=== PATIENT | female | born 1975 | race Two or more races ===

== ENCOUNTER → 2016-07-17 | Day surgery (SDC) | payer BC ==
[~2016-07-17] MED LIST: DESFLURANE 16 TO 30 MINUTES. IH ONE; DEXAMETHASONE SOD PHOS 20 MG/5 ML VIAL. ONE; DOXY100T PO; HYDR-971 PO; HYDROcodone/APAP 5/325MG 1 TAB TABLET PO ONE; HYDROmorphone 2 MG/ML VIAL IV PRN; IV RINGERS,LACTATED 1000ML 1,000 ML IV SCH; LIDOCAINE 1% 1 ML SYRINGE. ID PRN; LIDOCAINE 2% PF Vial for OR 5 ML VIAL. ONE; METH0.2T36 PO; MIDAZOLAM HCL/PF 2 MG/2 ML VIAL. ONE; MORPHINE SULFATE 2 MG/ML DISP.SYRIN. IV PRN; NAPR500T3 PO; ONDANSETRON PF 4 MG/2 ML VIAL. IV PRN; ONDANSETRON PF 4 MG/2 ML VIAL. ONE; OXYTOCIN 10 UNIT/ML VIAL. ONE; PHENYLEPHRINE in 0.9% NACL PF 1 MG/10 ML DISP.SYRIN. IV ONE; PROCHLORPERAZINE 10 MG/2 ML VIAL. IV PRN; PROPOFOL 20 ML IV ONE; fentaNYL PF VIAL 100 MCG/2 ML VIAL IV PRN; fentaNYL PF VIAL 100 MCG/2 ML VIAL ONE
--- NOTE | 2016-07-17 14:05 | RAD ---
Obstetrical ultrasound, 07/17/2016: History: demise Transabdominal and transvaginal scans were obtained. There is a single intrauterine gestational sac. It contains a pole demonstrating a crown-rump length of 8 mm. There is suggests a gestational age of 6-7 weeks. No cardiac activity is evident. That is abnormal with a pole of this size indicating a nonviable . There is a moderate sized subchorionic hemorrhage within the uterine cavity measuring approximately 4 x 1 cm. There is a 4.2 cm simple cyst in the right ovary. There is a 2.3 cm hypoechoic structure in the left ovary which probably represents a hemorrhagic cyst. There is blood flow in both ovaries. No free fluid is evident in the pelvis. IMPRESSION: 1. Nonviable early intrauterine as described above. 2. Moderate-sized subchorionic hemorrhage. 3. Right ovarian simple cyst. 4. Hemorrhagic left ovarian cyst.
[2016-07-17 14:23] LABS: CALCIUM 8.6 mg/dL (8.5-10.1); CREATININE 0.5 mg/dL (0.6-1.0); GFR 137.4; POTASSIUM 3.4 mmol/L (3.5-5.1)
--- NOTE | 2016-07-17 15:04 | PDOC ---
BRIEF OPERATIVE NOTE Date: July 17, 2016 Pre-Op Diagnosis Incomplete AB Post-Op Diagnosis Same Procedure Performed Suction D and C Surgeon Josephine Anesthesia Type: Regional Blood Loss 100cc Specimens Obtained POC Findings Dictated Complications none EDWIN MADERA MD July 17, 2016 15:04
[2016-07-17] MEDS: fentaNYL PF VIAL 100 MCG/2 ML VIAL IV PRN ×2 (15:28→15:42)
[2016-07-17 16:19] VITALS: BP 108/59
--- NOTE | 2016-07-17 19:12 | OP ---
DATE OF SURGERY: 07/17/2016 PREOPERATIVE DIAGNOSIS: Incomplete . POSTOPERATIVE DIAGNOSIS: Incomplete . PROCEDURE: Suction D and C. SURGEON: Edwin Burton M.D. AUDIT INTERN: None. ANESTHESIA: General. ESTIMATED BLOOD LOSS: 100 mL. FLUIDS: Crystalloid. COMPLICATIONS: None. SPECIMENS: Products of conception. CONDITION: Stable. DESCRIPTION OF PROCEDURE: After risks, benefits, indications, alternatives discussed in detail with the patient. The patient OR theater, placed in a dorsal lithotomy position in [facility]. After adequate general anesthesia, the patient was prepped and draped in usual sterile manner. Posterior weighted speculum was placed in the vaginal vault. Cervix was grasped with single tooth tenaculum. Cervix was dilated with Hegar dilators to receive another number 8 clear curved suction cannula. Exam under anesthesia was performed prior to this is approximately 10, 11 week size, ____ no adnexal masses appreciated. The curved suction cannula was passed through the cervical os without any difficulties. Gentle suction curettage was followed going through was done in all quadrants of the uterus, products of conception was seen going through clear tubing. Sharp curettage was performed. The uterine cry was heard. The uterine cavity was explored with still no forceps. No further tissue was expressed. Suction curettage was again performed. No further products of conception were seen going through clear tubing, exam under anesthesia was also again performed. Uterus was approximately 7-8 weeks at this time. Single tooth tenaculum was removed. Puncture sites were hemostatic. Vaginal vault was wiped free of any of tissue membranes. Procedure was terminated. The patient went to postop anesthesia recovery in stable condition. Sponge, needle and instrument counts were correct x 2 per nursing staff. EDWIN BURTON MD DR: RAMSES/genny JOB#: [id number] / [id number]
--- NOTE | 2016-07-20 12:42 | PATHOLOGY ---
PATHOLOGY REPORT * * * * * * * * FINAL DIAGNOSIS: Intrauterine contents, removal: - Chorionic villi present. REPORT ELECTRONICALLY SIGNED BY: Michael Cuellar M.D. DATE/TIME: 07/20/2016 12:41 * * * * * * * * GROSS PATHOLOGY: Received in formalin labeled "Samira Awan, products of conception," is a 10.1 x 8.9 x 1.4 cm aggregate of abundant blood clot admixed with spongiform, pink-matthews tissue. tissue is not present. Vesicular structures are not grossly identified. Engineering Instructor tissue is submitted in cassettes A1-A3. (KAH; 07/19/2016) INITIAL CPT CODE(S): A; 05629 Professional services performed [place] [facility] [place] [address] Technical services performed by [facility] at [address] [place] [address] [address] [address]. [place] [address] phone: [phone] fax: [phone] SPECIMEN(S) RECEIVED: A.Products of conception CLINICAL HISTORY: Incomplete PATIENT: SAMIRA AWAN /AGE: 1 1975 (Age: 41) PATIENT #: [id number] ALT CASE #: SPECIMEN COLLECTION DATE: 07/17/2016 SPECIMEN RECEIVED DATE: 07/18/2016 [facility] - [address] [place] [address] - PHONE: [phone] * * * END OF REPORT * * *
== END | disposition home or self-care (01) ==
LOC: SURG 12:46
PROVIDERS: ATTEND Specialist
DX: O03.4 Incomplete spontaneous abortion without complication (principal); N83.202 Unspecified ovarian cyst, left side; K21.9 Gastro-esophageal reflux disease without esophagitis; Z72.89 Other problems related to lifestyle
CPT/HCPCS: 36415; 59812; 76801; 76817; 80048; 86850; 86900; 86901; J1100; J2250; J2370; J2405; J2590; J2704; J3010; 88305

== ENCOUNTER 2017-07-09 07:36 | Inpatient (IN) | payer BC ==
[2017-07-09] MEDS ORDERED: CITRIC ACID/SODIUM CITRATE 30 ML SOLUTION. PO (09:15)
[2017-07-09] MEDS ORDERED: IBUPROFEN 800 MG TABLET. PO (09:15)
[2017-07-09] MEDS ORDERED: fentaNYL PF VIAL 100 MCG/2 ML VIAL IV (09:15)
[2017-07-09] MEDS ORDERED: TERBUTALINE 1 MG/ML VIAL. SQ (09:15)
[2017-07-09] MEDS ORDERED: BUTORPHANOL 2 MG/ML VIAL. IV ×2 (09:15)
[2017-07-09] MEDS ORDERED: 0.9 % SODIUM CHLORIDE 10 ML DISP.SYRIN. IV ×2 (09:15→15:15)
[2017-07-09] MEDS ORDERED: MAG HYDROX/ALUMINUM HYD/SIMETH 30 ML ORAL.SUSP PO ×2 (09:15→15:15)
[2017-07-09] MEDS ORDERED: OXYTOCIN 30 UNIT/500 ML PREMIX 500 ML IV ×3 (09:15→15:15)
[2017-07-09] MEDS ORDERED: LIDOCAINE 1% PF 30 ML VIAL. INJ (09:15)
[2017-07-09 09:20] LABS: HEMATOCRIT 29.8 % (36.0-47.0); MEAN CORPUSCULAR HEMOGLOBIN 29 pg (25-35); MEAN CORPUSCULAR HGB CONC 34 g/dL (31-37); MEAN CORPUSCULAR VOLUME 86 fL (79-100); PLATELET COUNT 193 x10^3/uL (140-400); RED BLOOD COUNT 3.47 x10^6/uL (3.50-5.40); RED CELL DISTRIBUTION WIDTH 14.6 % (11.5-14.5); WHITE BLOOD COUNT 9.9 x10^3/uL (4.0-11.0)
[2017-07-09] MEDS ORDERED: L&D EPIDURAL SYRINGE 50 ML EP (11:34)
[2017-07-09] MEDS ORDERED: ROPIVacaine 0.2% IN 0.9%NACL PF 40 MG/20 ML DISP.SYRIN. (11:34)
[2017-07-09] MEDS ORDERED: L&D EPIDURAL CASSETTE 100 ML EP (11:45)
[2017-07-09] MEDS ORDERED: fentaNYL PF VIAL 100 MCG/2 ML VIAL EPI (11:45)
[2017-07-09] MEDS ORDERED: ePHEDrine PF IN SALINE 50 MG/5 ML DISP.SYRIN IV (11:45)
[2017-07-09] MEDS ORDERED: ONDANSETRON PF 4 MG/2 ML VIAL. IV (11:45)
[2017-07-09] MEDS ORDERED: NALOXONE 0.4 MG/ML VIAL. IV (11:45)
[2017-07-09] MEDS: ROPIVacaine 0.2% IN 0.9%NACL PF 40 MG/20 ML DISP.SYRIN. EPI (12:51)
[2017-07-09] MEDS: IV RINGERS,LACTATED 1000ML 1,000 ML IV ×2 (12:51→12:53)
[2017-07-09] MEDS: OXYTOCIN 30 UNIT/500 ML PREMIX 500 ML IV (12:52)
[2017-07-09] MEDS: L&D EPIDURAL SYRINGE 50 ML EP (13:01)
[2017-07-09] MEDS ORDERED: ZOLPIDEM 5 MG TABLET. PO (15:15)
[2017-07-09] MEDS ORDERED: diphenhydrAMINE HCL 25 MG CAPSULE PO (15:15)
[2017-07-09] MEDS ORDERED: BENZOCAINE 20% TOPICAL AEROSOL SPRAY 57GM CAN. TP (15:15)
[2017-07-09] MEDS ORDERED: MAGNESIUM HYDROXIDE 2,400 MG/30 ML ORAL.SUSP. PO (15:15)
[2017-07-09] MEDS ORDERED: SIMETHICONE 80 MG TAB.CHEW PO (15:15)
[2017-07-09] MEDS ORDERED: ACETAMINOPHEN 325 MG TABLET. PO (15:15)
[2017-07-09] MEDS ORDERED: HYDROCORTISONE 1% TOPICAL OINTMENT 30GM TUBE. TP (15:15)
[2017-07-09] MEDS ORDERED: HYDROcodone/APAP 5/325MG 1 TAB TABLET PO (15:15)
[2017-07-09] MEDS ORDERED: PHENYLEPH/MINERAL OIL/PETROLAT RECTAL OINTMENT 28GM TUBE. RC (15:15)
[2017-07-09] MEDS: IBUPROFEN 800 MG TABLET. PO (17:40)
[2017-07-09] MEDS: DOCUSATE SODIUM 100 MG CAPSULE. PO (22:18)
[2017-07-10] MEDS: IBUPROFEN 800 MG TABLET. PO ×3 (01:13→23:03)
[2017-07-10 06:21] LABS: RPR Non Reactive (Non Reactive)
[2017-07-10] MEDS: FERROUS SULFATE 325 MG TABLET. PO ×2 (08:00→16:59)
[2017-07-10] MEDS: DOCUSATE SODIUM 100 MG CAPSULE. PO (08:43)
[2017-07-11] MEDS: FERROUS SULFATE 325 MG TABLET. PO (08:00)
== END 2017-07-11 13:43 | disposition home or self-care (01) | DRG 775 ==
LOC: 3 SO LND 07:36 → 3 NORTH 19:03
PROC: 10E0XZZ Delivery of Products of Conception, External Approach (ICD-10-PCS; principal; 2017-07-09)
PROC: 0W8NXZZ Division of Female Perineum, External Approach (ICD-10-PCS; 2017-07-09)
PROC: 3E0P7VZ Introduction of Hormone into Female Reproductive, Via Natural or Artificial Opening (ICD-10-PCS; 2017-07-09)
DX: O77.0 Labor and delivery complicated by meconium in amniotic fluid (principal); O43.123 Velamentous insertion of umbilical cord, third trimester; O70.9 Perineal laceration during delivery, unspecified; Z37.0 Single live birth; Z3A.39 39 weeks gestation of pregnancy
CPT/HCPCS: 36415; 85014; 85027; 86593; 86850; 86900; 86901; 88307; J2590; J2795; J7120

== ENCOUNTER 2020-02-22 21:02 | Emergency (ER) | payer MEDICAID ==
[~2020-02-22] VITALS: Ht 160 cm; Wt 65.9 kg
[~2020-02-22 21:02] MED LIST changes: +ACET325T9 PO; -DESFLURANE 16 TO 30 MINUTES. IH ONE; -DEXAMETHASONE SOD PHOS 20 MG/5 ML VIAL. ONE; +HYDR-3164 PO; -HYDR-971 PO; +HYDR25TA PO; -HYDROcodone/APAP 5/325MG 1 TAB TABLET PO ONE; -HYDROmorphone 2 MG/ML VIAL IV PRN; +IBUP-1027 PO; -IV RINGERS,LACTATED 1000ML 1,000 ML IV SCH; -LIDOCAINE 1% 1 ML SYRINGE. ID PRN; -LIDOCAINE 2% PF Vial for OR 5 ML VIAL. ONE; -MIDAZOLAM HCL/PF 2 MG/2 ML VIAL. ONE; -MORPHINE SULFATE 2 MG/ML DISP.SYRIN. IV PRN; +NAPR-514 PO; -NAPR500T3 PO; +NITR100C62 PO; -ONDANSETRON PF 4 MG/2 ML VIAL. IV PRN; -ONDANSETRON PF 4 MG/2 ML VIAL. ONE; -OXYTOCIN 10 UNIT/ML VIAL. ONE; -PHENYLEPHRINE in 0.9% NACL PF 1 MG/10 ML DISP.SYRIN. IV ONE; -PROCHLORPERAZINE 10 MG/2 ML VIAL. IV PRN; -PROPOFOL 20 ML IV ONE; -fentaNYL PF VIAL 100 MCG/2 ML VIAL IV PRN; -fentaNYL PF VIAL 100 MCG/2 ML VIAL ONE
[2020-02-22 21:45] LABS: BILIRUBIN,URINE NEGATIVE (NEG); CLARITY,URINE CLEAR; COLOR,URINE YELLOW; NITRITE,URINE NEGATIVE (NEG); PROTEIN,URINE NEGATIVE (NEG-TRACE); UROBILINOGEN,URINE 0.2 mg/dL (0.2 mg/dL)
[2020-02-22 21:46] LABS: BASO % 0 % (0-3); EOS % 0 % (0-3); HEMATOCRIT 33.9 % (36.0-47.0); HEMOGLOBIN 11.2 g/dL (12.0-15.5); LYMPH # 0.7 x10^3/uL (1.0-4.8); LYMPH % 6 % (24-48); MEAN CORPUSCULAR HEMOGLOBIN 28 pg (25-35); MEAN CORPUSCULAR HGB CONC 33 g/dL (31-37); MEAN CORPUSCULAR VOLUME 83 fL (79-100); MONO # 0.7 x10^3/uL (0.0-1.1); MONO % 6 % (0-9); NEUT # 10.1 x10^3/uL (1.8-7.7); NEUT % 87 % (31-73); PLATELET COUNT 175 x10^3/uL (140-400); RED BLOOD COUNT 4.08 x10^6/uL (3.50-5.40); RED CELL DISTRIBUTION WIDTH 15.4 % (11.5-14.5); WHITE BLOOD COUNT 11.5 x10^3/uL (4.0-11.0)
[2020-02-22 21:53] LABS: BACTERIA,URINE 0 /HPF (0-FEW); RBC,URINE OCC /HPF (0-2)
[2020-02-22 21:54] LABS: CREATININE 0.9 mg/dL (0.6-1.0); GFR 68.7; POTASSIUM 3.6 mmol/L (3.5-5.1)
[2020-02-22 21:59] LABS: ALBUMIN 3.5 g/dL (3.4-5.0); ALBUMIN/GLOBULIN RATIO 0.9 (1.0-1.7); TOTAL BILIRUBIN 0.3 mg/dL (0.2-1.0); TOTAL PROTEIN 7.3 g/dL (6.4-8.2)
[2020-02-22] MEDS ORDERED: IV NORMAL SALINE 1000ML BAG 1,000 ML IV ONE (22:00)
--- NOTE | 2020-02-22 22:00 | PHYS DOC ---
Past Medical History Past Medical History: Other Additional Past Medical Histor: PYELONEPHRITIS, COVID +, HYPERPARATHYROID Past Surgical History: Other Additional Past Surgical Histo: parathyroidectomy, D&C Smoking Status: Never Smoker Alcohol Use: Occasionally General Adult EDM: Chief Complaint: ABDOMINAL PAIN HPI: HPI: Patient is a 44 year old female who presented to ER for evaluation of left flank pain associate with some nausea for 1 week. Patient started having a f ever 3 days ago. Patient denies any cough. Patient denies any chest pain or any nausea vomiting. Patient had COVID-19 infection 1 month ago. Review of Systems: Review of Systems: Constitutional: Positive for fever and chills [] Eyes: Denies change in visual acuity. [] HENT: Denies nasal congestion or sore throat. [] Respiratory: Denies cough or shortness of breath. [] Cardiovascular: Denies chest pain or edema. [] GI: Positive for left flank pain, no nausea vomiting, no diarrhea : Denies dysuria. [] Musculoskeletal: Denies back pain or joint pain. [] Integument: Denies rash. [] Neurologic: Denies headache, focal weakness or sensory changes. [] Endocrine: Denies polyuria or polydipsia. [] Lymphatic: Denies swollen glands. [] Psychiatric: Denies depression or anxiety. [] Heart Score: Risk Factors: Risk Factors: DM, Current or recent (<one month) smoker, HTN, HLP, family history of CAD, obesity. Risk Scores: Score 0 - 3: 2.5% MACE over next 6 weeks - Discharge Home Score 4 - 6: 20.3% MACE over next 6 weeks - Admit for Clinical Observation Score 7 - 10: 72.7% MACE over next 6 weeks - Early Invasive Strategies Current Medications: Current Medications Medications (Trade) Dose Ordered Sig/Brenda Start Time Stop Time Status Last Admin Dose Admin Ceftriaxone Sodium (Rocephin) 1 gm 1X ONCE 02/22/20 22:30 02/22/20 22:31 UNV Sodium Chloride 1,000 ml @ 1,000 mls/hr 1X ONCE 02/22/20 22:00 02/22/20 22:59 02/22/20 21:50 1,000 MLS/HR Allergies: Allergies: Allergies Coded Allergies Type Severity Reaction Last Updated Verified sodium hypochlorite solution Allergy Intermediate COUGH 07/11/17 Yes Physical Exam: PE: Constitutional: Well developed, well nourished, no acute distress, non-toxic appearance. [] HENT: Normocephalic, atraumatic, bilateral external ears normal, oropharynx moist, no oral exudates, nose normal. [] Eyes: PERRLA, EOMI, conjunctiva normal, no discharge. [] Neck: Normal range of motion, no tenderness, supple, no stridor. [] Cardiovascular:Heart rate regular rhythm, no murmur [] Lungs & Thorax: Bilateral breath sounds clear to auscultation [] Abdomen: Bowel sounds normal, soft, LUQ tenderness, no masses, no pulsatile masses. [] Skin: Warm, dry, no erythema, no rash. [] Back: No tenderness, Left CVA tenderness. [] Extremities: No tenderness, no cyanosis, no clubbing, ROM intact, no edema. [] Neurologic: Alert and oriented X 3, normal motor function, normal sensory function, no focal deficits noted. [] Psychologic: Affect normal, judgement normal, mood normal. [] Current Patient Data: Labs: Laboratory Tests Test 02/22/20 21:19 02/22/20 21:26 POC Urine HCG, Qualitative Hcg negative (Negative) White Blood Count 11.5 x10^3/uL (4.0-11.0) H Red Blood Count 4.08 x10^6/uL (3.50-5.40) Hemoglobin 11.2 g/dL (12.0-15.5) L Hematocrit 33.9 % (36.0-47.0) L Mean Corpuscular Volume 83 fL (79-100) Mean Corpuscular Hemoglobin 28 pg (25-35) Mean Corpuscular Hemoglobin Concent 33 g/dL (31-37) Red Cell Distribution Width 15.4 % (11.5-14.5) H Platelet Count 175 x10^3/uL (140-400) Neutrophils (%) (Auto) 87 % (31-73) H Lymphocytes (%) (Auto) 6 % (24-48) L Monocytes (%) (Auto) 6 % (0-9) Eosinophils (%) (Auto) 0 % (0-3) Basophils (%) (Auto) 0 % (0-3) Neutrophils # (Auto) 10.1 x10^3/uL (1.8-7.7) H Lymphocytes # (Auto) 0.7 x10^3/uL (1.0-4.8) L Monocytes # (Auto) 0.7 x10^3/uL (0.0-1.1) Eosinophils # (Auto) 0.0 x10^3/uL (0.0-0.7) Basophils # (Auto) 0.0 x10^3/uL (0.0-0.2) Platelet Estimate Pending Urine Collection Type Unknown Urine Color Yellow Urine Clarity Clear Urine pH 6.0 (<5.0-8.0) Urine Specific [place] <=1.005 (1.000-1.030) Urine Protein Negative mg/dL (NEG-TRACE) Urine Glucose (UA) 100 mg/dL (NEG) Urine Ketones (Stick) Negative mg/dL (NEG) Urine Blood Trace (NEG) Urine Nitrite Negative (NEG) Urine Bilirubin Negative (NEG) Urine Urobilinogen Dipstick 0.2 mg/dL (0.2 mg/dL) Urine Leukocyte Esterase Small (NEG) Urine RBC Occ /HPF (0-2) Urine WBC 5-10 /HPF (0-4) Urine Squamous Epithelial Cells Few /LPF Urine Bacteria 0 /HPF (0-FEW) Sodium Level 136 mmol/L (136-145) Potassium Level 3.6 mmol/L (3.5-5.1) Chloride Level 100 mmol/L (98-107) Carbon Dioxide Level 23 mmol/L (21-32) Anion Gap 13 (6-14) Blood Urea Nitrogen 10 mg/dL (7-20) Creatinine 0.9 mg/dL (0.6-1.0) Estimated GFR (Cockcroft-Gault) 68.7 BUN/Creatinine Ratio 11 (6-20) Glucose Level 166 mg/dL (70-99) H Calcium Level 9.0 mg/dL (8.5-10.1) Total Bilirubin Pending Aspartate Amino Transferase (AST) Pending Alanine Aminotransferase (ALT) Pending Alkaline Phosphatase Pending Total Protein Pending Albumin Pending Albumin/Globulin Ratio Pending Lipase Pending Laboratory Tests 02/22/20 21:26 Laboratory Tests 02/22/20 21:26 Vital Signs: Vital Signs Date Time Temp Pulse Resp B/P (MAP) Pulse Ox O2 Delivery O2 Flow Rate FiO2 02/22/20 21:30 98.5 67 16 99/65 (76) 98 Room Air 98.5 EKG: EKG: [] Radiology/Procedures: Radiology/Procedures: [][facility] [address] [place] [address] IMAGING REPORT Signed PATIENT: BREE HOFFMANACCOUNT: [id number] : 1975 LOCATION: ER AGE: 44 SEX: F EXAM STATUS: REG ER ORD. PHYSICIAN: NAEEM GIVENS DO REASON: left side flank pain, fever for 1 week PROCEDURE: CT ABD PELV W/ IV CONTRST ONLY Study: CT abdomen/pelvis with intravenous contrast Indication: Left flank pain. Fever. Comparison: None. Technique: Helical CT imaging performed of the abdomen and pelvis after the intravenous administration of 75 cc Omnipaque 300 contrast. Sagittal and coronal reformats were obtained. One or more of the following individualized dose reduction techniques were utilized for this examination: 1. Automated exposure control 2. Adjustment of the mA and/or kV according to patient size 3. Use of iterative reconstruction technique. Findings: Faint patchy cortical hypoattenuation involving the left kidney most typical of mild pyelonephritis. Normal cortical attenuation pattern on the right. Intermittent ectasia of both ureters but there is no significant intrarenal collecting system dilatation. No obstructing stone. Mildly thick-walled urinary bladder. Thickened endometrium. Unremarkable left adnexa. Right ovarian cyst measures 6.4 x 4.2 x 4.3 cm. Simple internal density of less than 10 Hounsfield units No acute colonic abnormality. Mild volume well-formed stool burden. Normal appendix. Patulous small bowel at several locations without transitioning to suggest obstruction. Within normal limits stomach. Upper limits of normal size of the liver. No focal parenchymal abnormality. Single small calcified gallstone. No evidence for acute cholecystitis. Unremarkable biliary tree, pancreas and spleen. No adrenal gland mass. Unremarkable major vasculature. No lymphadenopathy by size criteria. No free fluid or pneumoperitoneum. Small fat-containing umbilical hernia. Mild atelectasis at the lung bases. No acute or aggressive osseous process. Impression: 1. Findings compatible with mild pyelonephritis on the left. The urinary b ladder is mildly thick-walled. Cystitis with ascension of infection up the ureter is possible. Correlate with urinalysis. 2. Right ovarian cyst that appears simple measures up to 6.4 cm in maximum di mension. Follow-up ultrasound could be performed in 6-12 months for growth rate assessment. Electronically signed by: ERICA LEES MD (02/22/2020 10:45 PM) [facility] DICTATED and SIGNED BY: ERICA LEES MD DATE: 02/22/20 [id number] 0 Course & Med Decision Making: Course & Med Decision Making Pertinent Labs and Imaging studies reviewed. (See chart for details) Patient is a 44-year-old female who presented to ER today for evaluation of left flank pain, CT scan her lab work showed that she had acute pyelonephritis. Patient will be discharged home with fluoroquinolone. Patient will need to follow her family physician for reevaluation. Dragon Disclaimer: Dragon Disclaimer: This electronic medical record was generated, in whole or in part, using a voice recognition dictation system. Departure Departure Impression: Primary Impression: Pyelonephritis Disposition: 01 DC HOME SELF CARE/HOMELESS Condition: IMPROVED Referrals: NO PCP (PCP) follow up with your doctor this week for reevaluation Patient Instructions: Pyelonephritis, Adult Additional Instructions: Thank you for visiting our Emergency Department. We appreciate you trusting us with your care. If any additional problems come up don't hesitate to return to visit us. Please follow up with your primary care provider so they can plan additional care if needed and know about the problem that you had. If symptoms worsen come back to the Emergency Department. Any concerning symptoms that start such as chest pain, shortness of air, weakness or numbness on one side of the body, running high fevers or any other concerning symptoms return to the ER. Scripts Levofloxacin (LEVOFLOXACIN) 750 Mg Tablet 1 TAB PO DAILY, #7 TAB Prov: NAEEM GIVENS DO 02/22/20 NAEEM GIVENS DO Feb 22, 2020 22:00
[2020-02-22 22:21] LABS: % BANDS 23 % (0-9); % LYMPHS 4 % (24-48); % MONOS 6 % (0-10); % SEGS 67 % (35-66); PLT ESTIMATE ADEQUATE (ADEQUATE)
[2020-02-22] MEDS ORDERED: cefTRIAXone IV Push 1 GM VIAL. IVP ONE (22:30)
[2020-02-22] MEDS ORDERED: CONTRAST GIVEN. MC PRN (22:45)
--- NOTE | 2020-02-22 22:48 | RAD ---
Study: CT abdomen/pelvis with intravenous contrast Indication: Left flank pain. Fever. Comparison: None. Technique: Helical CT imaging performed of the abdomen and pelvis after the intravenous administratio n of 75 cc Omnipaque 300 contrast. Sagittal and coronal reformats were obtained. One or more of the following individualized dose reduction techniques were utilized for this examinat ion: 1. Automated exposure control 2. Adjustment of the mA and/or kV according to patient size 3. Use of iterative reconstruction technique. Findings: Faint patchy cortical hypoattenuation involving the left kidney most typical of mild pyelonephritis. Normal cortical attenuation pattern on the right. Intermittent ectasia of both ureters but there is n o significant intrarenal collecting system dilatation. No obstructing stone. Mildly thick-walled urin pankaj bladder. Thickened endometrium. Unremarkable left adnexa. Right ovarian cyst measures 6.4 x 4.2 x 4.3 cm. Simp le internal density of less than 10 Hounsfield units No acute colonic abnormality. Mild volume well-formed stool burden. Normal appendix. Patulous small b owel at several locations without transitioning to suggest obstruction. Within normal limits stomach. Upper limits of normal size of the liver. No focal parenchymal abnormality. Single small calcified ga llstone. No evidence for acute cholecystitis. Unremarkable biliary tree, pancreas and spleen. No adre nal gland mass. Unremarkable major vasculature. No lymphadenopathy by size criteria. No free fluid or pneumoperitoneu m. Small fat-containing umbilical hernia. Mild atelectasis at the lung bases. No acute or aggressive osseous process. Impression: 1. Findings compatible with mild pyelonephritis on the left. The urinary bladder is mildly thick-wal led. Cystitis with ascension of infection up the ureter is possible. Correlate with urinalysis. 2. Right ovarian cyst that appears simple measures up to 6.4 cm in maximum dimension. Follow-up ultr asound could be performed in 6-12 months for growth rate assessment. Electronically signed by: ERICA LEES MD (02/22/2020 10:45 PM) [facility]
[2020-02-22 22:54] VITALS: BP 91/53
[2020-02-22] MEDS ORDERED: LEVO750T5 PO (22:55)
[2020-02-22] MEDS ORDERED: IOHEXOL 300 MG/ML 100ML VIAL. IV ONE (23:00)
[2020-02-22] MEDS ORDERED: KETOROLAC 30 MG/ML VIAL. IVP ONE (23:30)
== END 2020-02-22 23:16 | disposition home or self-care (01) ==
LOC: ER 21:02
DX: N12 Tubulo-interstitial nephritis, not specified as acute or chronic (principal); Z88.8 Allergy status to other drugs, medicaments and biological substances
CPT/HCPCS: 36415; 74177; 80053; 81001; 81025; 83690; 85007; 85025; 87086; 96361; 96374; 96375; 99285; J0696; J1885; J7030; Q9967

== ENCOUNTER 2020-05-08 04:25 | Emergency (ER) | payer MEDICAID ==
[~2020-05-08] VITALS: Ht 160 cm; Wt 65.9 kg
[~2020-05-08 04:25] MED LIST changes: +LEVO750T5 PO
[2020-05-08 05:09] LABS: BILIRUBIN,URINE NEGATIVE (NEG); CLARITY,URINE CLEAR; COLOR,URINE YELLOW; NITRITE,URINE POSITIVE (NEG); PH,URINE 6.5 (<5.0-8.0); PROTEIN,URINE NEGATIVE (NEG-TRACE); UROBILINOGEN,URINE 0.2 mg/dL (0.2 mg/dL)
[2020-05-08 05:15] LABS: BACTERIA,URINE MANY /HPF (0-FEW); RBC,URINE RARE /HPF (0-2); WBC,URINE TNTC /HPF (0-4)
[2020-05-08] MEDS ORDERED: KETOROLAC 15 MG/ML VIAL. IVP ONE (05:15)
[2020-05-08 05:16] LABS: BASO # 0.1 x10^3/uL (0.0-0.2); BASO % 1 % (0-3); EOS # 0.2 x10^3/uL (0.0-0.7); EOS % 2 % (0-3); HEMATOCRIT 33.7 % (36.0-47.0); HEMOGLOBIN 11.1 g/dL (12.0-15.5); LYMPH # 1.8 x10^3/uL (1.0-4.8); LYMPH % 28 % (24-48); MEAN CORPUSCULAR HEMOGLOBIN 28 pg (25-35); MEAN CORPUSCULAR HGB CONC 33 g/dL (31-37); MEAN CORPUSCULAR VOLUME 84 fL (79-100); MONO # 0.5 x10^3/uL (0.0-1.1); MONO % 8 % (0-9); NEUT % 61 % (31-73); PLATELET COUNT 203 x10^3/uL (140-400); RED BLOOD COUNT 4.03 x10^6/uL (3.50-5.40); RED CELL DISTRIBUTION WIDTH 15.3 % (11.5-14.5); WHITE BLOOD COUNT 6.5 x10^3/uL (4.0-11.0)
[2020-05-08 05:37] LABS: CALCIUM 8.3 mg/dL (8.5-10.1); CREATININE 0.9 mg/dL (0.6-1.0); GFR 68.3; POTASSIUM 3.8 mmol/L (3.5-5.1)
[2020-05-08 05:43] LABS: ALBUMIN 3.5 g/dL (3.4-5.0); ALBUMIN/GLOBULIN RATIO 0.9 (1.0-1.7); TOTAL BILIRUBIN 0.3 mg/dL (0.2-1.0); TOTAL PROTEIN 7.3 g/dL (6.4-8.2)
--- NOTE | 2020-05-08 05:46 | PHYS DOC ---
Past Medical History Past Medical History: Other Additional Past Medical Histor: PYELONEPHRITIS, COVID +, HYPERPARATHYROID Past Surgical History: Other Additional Past Surgical Histo: parathyroidectomy, D&C Smoking Status: Never Smoker Alcohol Use: Occasionally Adult General Chief Complaint Chief Complaint: NAUSEA/VOMITING/DIARRHA HPI HPI Patient is a 45 year old female presenting the emergency department complaint of new onset of abdominal back pain. Patient states that approximately 8 hours prior to arrival she noted new onset of midepigastric abdominal pain associate with mild nausea. Patient states that she was able to sleep within 3 hours prior to arrival woke up with worsening pain in the right back radiating to the right upper quadrant. Has been associated with mild nausea but denies any fever, chills, dizziness, diarrhea, chest pain or shortness of breath Review of Systems Review of Systems Constitutional: Denies fever or chills [] Eyes: Denies change in visual acuity, redness, or eye pain [] HENT: Denies nasal congestion or sore throat [] Respiratory: Denies cough or shortness of breath [] Cardiovascular: No additional information not addressed in HPI [] GI: Denies abdominal pain, nausea, vomiting, bloody stools or diarrhea [] : Denies dysuria or hematuria [] Musculoskeletal: Denies back pain or joint pain [] Integument: Denies rash or skin lesions [] Neurologic: Denies headache, focal weakness or sensory changes [] Endocrine: Denies polyuria or polydipsia [] All other systems were reviewed and found to be within normal limits, except as documented in this note. Current Medications Current Medications Current Medications Medications (Trade) Dose Ordered Sig/[facility] Start Time Stop Time Status Last Admin Dose Admin Ketorolac Tromethamine (Toradol 15mg Vial) 15 mg 1X ONCE 05/08/20 05:15 05/08/20 05:16 DC 05/08/20 05:13 15 MG Allergies Allergies Allergies Coded Allergies Type Severity Reaction Last Updated Verified sodium hypochlorite solution Allergy Intermediate COUGH 07/11/17 Yes Physical Exam Physical Exam Constitutional: Well developed, well nourished, no acute distress, non-toxic appearance. [] HENT: Normocephalic, atraumatic, bilateral external ears normal, oropharynx moist, no oral exudates, nose normal. [] Eyes: PERRLA, EOMI, conjunctiva normal, no discharge. [] Neck: Normal range of motion, no tenderness, supple, no stridor. [] Cardiovascular:Heart rate regular rhythm, no murmur [] Lungs & Thorax: Bilateral breath sounds clear to auscultation [] Abdomen: Bowel sounds normal, soft, no tenderness, no masses, no pulsatile mas ses. [] Skin: Warm, dry, no erythema, no rash. [] Back: No tenderness, no CVA tenderness. [] Extremities: No tenderness, no cyanosis, no clubbing, ROM intact, no edema. [] Neurologic: Alert and oriented X 3, normal motor function, normal sensory function, no focal deficits noted. [] Psychologic: Affect normal, judgement normal, mood normal. [] Current Patient Data Lab Values Laboratory Tests Test 05/08/20 04:32 05/08/20 04:48 05/08/20 05:01 Urine Color Yellow Urine Clarity Clear Urine pH 6.5 (<5.0-8.0) Urine Specific [place] >=1.030 (1.000-1.030) Urine Protein Negative mg/dL (NEG-TRACE) Urine Glucose (UA) Negative mg/dL (NEG) Urine Ketones (Stick) Negative mg/dL (NEG) Urine Blood Negative (NEG) Urine Nitrite Positive (NEG) Urine Bilirubin Negative (NEG) Urine Urobilinogen Dipstick 0.2 mg/dL (0.2 mg/dL) Urine Leukocyte Esterase Moderate (NEG) Urine RBC Rare /HPF (0-2) Urine WBC Tntc /HPF (0-4) Urine Squamous Epithelial Cells Mod /LPF Urine Bacteria Many /HPF (0-FEW) Urine Mucus Mod /LPF POC Urine HCG, Qualitative Hcg negative (Negative) White Blood Count 6.5 x10^3/uL (4.0-11.0) Red Blood Count 4.03 x10^6/uL (3.50-5.40) Hemoglobin 11.1 g/dL (12.0-15.5) L Hematocrit 33.7 % (36.0-47.0) L Mean Corpuscular Volume 84 fL (79-100) Mean Corpuscular Hemoglobin 28 pg (25-35) Mean Corpuscular Hemoglobin Concent 33 g/dL (31-37) Red Cell Distribution Width 15.3 % (11.5-14.5) H Platelet Count 203 x10^3/uL (140-400) Neutrophils (%) (Auto) 61 % (31-73) Lymphocytes (%) (Auto) 28 % (24-48) Monocytes (%) (Auto) 8 % (0-9) Eosinophils (%) (Auto) 2 % (0-3) Basophils (%) (Auto) 1 % (0-3) Neutrophils # (Auto) 4.0 x10^3/uL (1.8-7.7) Lymphocytes # (Auto) 1.8 x10^3/uL (1.0-4.8) Monocytes # (Auto) 0.5 x10^3/uL (0.0-1.1) Eosinophils # (Auto) 0.2 x10^3/uL (0.0-0.7) Basophils # (Auto) 0.1 x10^3/uL (0.0-0.2) Sodium Level 139 mmol/L (136-145) Potassium Level 3.8 mmol/L (3.5-5.1) Chloride Level 103 mmol/L (98-107) Carbon Dioxide Level 26 mmol/L (21-32) Anion Gap 10 (6-14) Blood Urea Nitrogen 18 mg/dL (7-20) Creatinine 0.9 mg/dL (0.6-1.0) Estimated GFR (Cockcroft-Gault) 68.3 BUN/Creatinine Ratio 20 (6-20) Glucose Level 90 mg/dL (70-99) Calcium Level 8.3 mg/dL (8.5-10.1) L Total Bilirubin 0.3 mg/dL (0.2-1.0) Aspartate Amino Transferase (AST) 41 U/L (15-37) H Alanine Aminotransferase (ALT) 45 U/L (14-59) Alkaline Phosphatase 90 U/L (46-116) Total Protein 7.3 g/dL (6.4-8.2) Albumin 3.5 g/dL (3.4-5.0) Albumin/Globulin Ratio 0.9 (1.0-1.7) L Lipase 179 U/L (73-393) Laboratory Tests 05/08/20 05:01 Laboratory Tests 05/08/20 05:01 EKG EKG [] Radiology/Procedures Radiology/Procedures [] Course & Med Decision Making Course & Med Decision Making Pertinent Labs and Imaging studies reviewed. (See chart for details) 45F presenting with new onset of RUQ abdominal pain, nausea and back pain with tenderness in the areas. Cocnern for acute cholecystitis but bedside ultrasound negative for any gallbladder wall thickening, pericholcystic fluid or gallstones. Will obtain blood work and urine to evaluate for renal stone or UTI. Laboratory data reviewed and unremarkable other than nitrates in the urine. We will treat the patient for urinary tract infection discharge Dragon Disclaimer Dragon Disclaimer This electronic medical record was generated, in whole or in part, using a voice recognition dictation system. Departure Departure Impression: Primary Impression: UTI (urinary tract infection) Disposition: 01 DC HOME SELF CARE/HOMELESS Condition: GOOD Referrals: UNKNOWN PCP NAME (PCP) Patient Instructions: Urinary Tract Infection Additional Instructions: EMERGENCY DEPARTMENT GENERAL DISCHARGE INSTRUCTIONS Thank you for coming to [facility] Emergency Department (ED) today and trusting us with you care. We trust that you had a positive experience in our Emergency Department. If you wish to speak to the department management, you may call the Director at [phone]. YOUR FOLLOW UP INSTRUCTIONS ARE FOLLOWS: 1. Do you have a private Doctor? If you do not have a private doctor, please ask for a resource list of physicians or clinics that may be able to assist you with follow up care. 2. The Emergency Physicain has interpreted your x-rays. The X-Ray specialist will also review them. If there is a change in the findings, you will be notified in 48 hours when at all possible. 3. A lab test or culture has been done, your results will be reviewed and you will be notified if you need a change in treatment. ADDITIONAL INSTRUCTIONS AND INFORMATION: 1. Your care today has been supervised by a physician who is specially trained in emergency care. Many problems require more than one evaluation for a complete diagnosis and treatment. We recommend that you schedule your follow up appointment as recommended to ensure complete treatment of you illness or injury. If you are unable to obtain follow up care and continue to have a problem, or if your condition worsens, we recommend that you return to the ED. 2. We are not able to safely determine your condition over the phone nor are we able to give sound medical advice over the phone. For these safety reasons, if you call for medical advice we will ask you to come to the ED for further evaluation. 3. If you have any questions regarding these discharge instructions please call the ED at [phone]. SAFETY INFORMATION: In the interest of safety, wellness, and injury prevention; we encourage you to wear your sealbelt, if you smoke; quite smoking, and we encourage family to use a protective helmet for bicycling and other sporting events that present an increased risk for head injury. IF YOUR SYMPTOMS WORSEN OR NEW SYMPTOMS DEVELOP, OR YOU HAVE CONCERNS ABOUT YOUR CONDITION; OR IF YOUR CONDITION WORSENS WHILE YOU ARE WAITING FOR YOUR FOLLOW UP APPOINTMENT; EITHER CONTACT YOUR PRIMARY CARE DOCTOR, THE PHYSICIAN WHOSE NAME AND NUMBER YOU WERE GIVEN, OR RETURN TO THE ED IMMEDIATELY. Scripts Nitrofurantoin Monohyd/M-Cryst (MACROBID [id number] MG CAPSULE) 100 Mg Capsule 1 CAP PO BID for 7 Days, #14 CAP 0 Refills Prov: BONNIE CABALLERO MD 05/08/20 BONNIE CABALLERO MD May 08, 2020 05:46
[2020-05-08] MEDS ORDERED: NITR100C62 PO (06:05)
[2020-05-08 06:07] VITALS: BP 96/59
== END 2020-05-08 06:38 | disposition home or self-care (01) ==
LOC: ER 04:25
DX: N39.0 Urinary tract infection, site not specified (principal); R10.13 Epigastric pain; R11.0 Nausea; Z90.89 Acquired absence of other organs; Z98.890 Other specified postprocedural states
CPT/HCPCS: 36415; 80053; 81001; 81025; 83690; 85025; 96374; 99283; J1885